=== PATIENT | female | born 1985 | race African-American/Black ===

== ENCOUNTER 2016-05-26 13:56 | Emergency (ER) | payer SELFPAY ==
[~2016-05-26] VITALS: Ht 180.3 cm; Wt 80.0 kg
[~2016-05-26 13:56] MED LIST: IBUP600T26 PO; LORTA5 PO; SULF1TAB47 PO
[2016-05-26 13:58] VITALS: BP 166/93; PULSE 69; RESP 12; TEMP 98.1; O2SAT 99
[2016-05-26] MEDS ORDERED: CLINDAMYCIN 150 MG CAP PO ONE (19:15)
[2016-05-26] MEDS ORDERED: NAPROXEN 500 MG TAB PO ONE (19:15)
--- NOTE | 2016-05-26 19:16 | PD ---
HPI Chief Complaint: Oral / Dental Pain or Problem Time Seen by Provider: 19:11 Travel History International Travel<30 days: No Contact w/Intl Traveler<30days: No Traveled to known affect area: No History of Present Illness HPI Patient comes in complaining of left upper dental pain ongoing for a while now. Patient states she tried getting to the health department 2 weeks ago, but was told she needs to be on antibiotics. Patient reports over the past week there was a small bump her left upper gum line that started draining. Patient denies any fevers, nausea or vomiting, or difficulty swallowing. Patient states she's also had associated headaches and intermittent dizziness over the past 3+ months similar to her tension headaches but has not seen a neurologist or PCP for this. Patient using [id number] medication for symptomatic relief last took yesterday. PFSH Past Medical History Blood Disorders: Yes (PE 07/26) Anxiety: Yes Depression: Yes Cancer: No Cardiovascular Problems: Yes (PE 07/26) High Cholesterol: No Congestive Heart Failure: No Diabetes: No Diminished Hearing: No Endocrine: Yes Gastrointestinal Disorders: No Genitourinary: No Hypertension: No Immune Disorder: No Implanted Vascular Access Dvce: No Medical other: Yes (pulmonary embolism) Musculoskeletal: No Neurologic: Yes Psychiatric: Yes Reproductive: No Respiratory: Yes (FOR LAST 2-3 WEEKS) Migraines: Yes Thyroid Disease: Yes ?: Unknown Menopausal: No : 0 Dilation and Curettage (D&C): Yes ("IRREGULAR VAGINAL BLEEDING (NOT ) 08/2005") Past Surgical History Genitourinary Surgery: Yes (D AND C 08/22) Gynecologic Surgery: Yes (D&C [place] 2005) Other Surgery: Yes Social History Alcohol Use: No Tobacco Use: Yes Substance Use: No Allergies-Medications (Allergen,Severity, Reaction): Coded Allergies: No Known Allergies (Verified , 05/26/16) Reported Meds & Prescriptions Reported Meds & Active Scripts Active Naprosyn (Naproxen) 500 Mg Tab 500 Mg PO Q12HR PRN Clindamycin (Clindamycin HCl) 150 Mg Cap 2 Tab PO Q6H 10 Days [place] 5-325 mg (Hydrocodone-Acetaminophen 5-325 mg) 5 mg/325 mg Tab 1 Tab PO Q6H PRN Ibuprofen 600 Mg Tab 600 Mg PO Q8H PRN Bactrim Ds (Trimethoprim/Sulfamethoxazole) Tab 1 Tab PO BID Review of Systems Except as stated in HPI: all other systems reviewed are Neg Physical Exam Narrative GENERAL: Well-developed, overly nourished, in no acute distress, and non-ill appearing. SKIN: Warm and dry. HEAD: Atraumatic. Normocephalic. EYES: Pupils equal and round. EOMI. No scleral icterus. No injection or drainage. ENT: No nasal bleeding or discharge. Mucous membranes pink and moist. Tympanic membranes pearly soni bilaterally. Posterior pharynx nonerythematous without exudate. Uvula is midline. Patient has poor temptation with draining abscess noted over tooth #11 is tender to palpation. Floor the mouth, submandibular, submental, and floor the mouth are soft palpation. No tenderness to facial sinuses. NECK: Trachea midline. No cervical lymphadenopathy. Supple. No nuclear rigidity. RESPIRATORY: No accessory muscle use. No respiratory distress. MUSCULOSKELETAL: No obvious deformities. No clubbing. No cyanosis. No edema. Full range of motion. NEUROLOGICAL: Awake and alert. No obvious cranial nerve deficits. Motor grossly within normal limits. Normal speech. PSYCHIATRIC: Appropriate mood and affect; insight and judgment normal. Data Data Last Documented VS Vital Signs Date Time Temp Pulse Resp B/P Pulse Ox O2 Delivery O2 Flow Rate FiO2 05/26/16 13:58 98.1 69 12 166/93 99 Room Air Orders Clindamycin (Cleocin) (05/26/16 19:15) Naproxen (Naprosyn) (05/26/16 19:15) Ed Urine Pregnancytest Poc (05/26/16 19:12) MDM Medical Decision Making Medical Screen Exam Complete: Yes Emergency Medical Condition: Yes Differential Diagnosis Dental infection, dental abscess, dental caries, dentalgia, other Narrative Course The patient presented with dental pain. There is no fever. There is no significant facial swelling or evidence of cellulitis. There is poor dentition and evidence of a draining abscess. There is no evidence of significant deep or invading abscess at this time. The patient will be placed on antibiotics and pain medication. The patient was instructed to follow up with a dentist. The patient was given the dental referral sheet. Warnings were discussed with the patient regarding worsening of infection. The patient is to return if pain worsens, develops progressive swelling or facial redness or fever. The patient agrees with plan. The patient looks great and is in no significant objective discomfort currently. Headache appears consistent with patients typical headache. Exam is unremarkable. The patient is in no distress and the patients neurological exam is normal, neck is supple and without meningismus. The headache is not consistent with meningitis or infection, nor is it consistent with intracranial bleed (SAH etc.), carotid dissection, nor mass by history and examination. Medication and instructions to rest in a cool dark quite place were discussed with the patient. Also, outpatient follow up was instructed. The patient was instructed to return as needed or if symptoms changed or worsened, fever developed or inability to tolerate fluids. The patient agreed with plan. Patient in no obvious distress upon re-evaluation. Discussed patient with Dr. Du, who is in agreement with plan of care and disposition. Patient was asked if they wanted to speak to my attending, which the patient did not wish to do at this time. Any questions/concerns in reference to patient diagnosis/condition discussed and clarified prior to patient's discharge. Reinforced sheer importance of close follow up with patient's primary physician or primary care clinic. Instructed patient to return to ED immediately, if symptoms return/worsen. Pt showed understanding of above instructions. Further instructions and recommendations were detailed in discharge paperwork. Pt ambulated without difficulty out of ED at discharge. Diagnosis Primary Impression: Dental abscess Additional Impressions: Dental caries Tension headache, chronic Qualified Code: G44.229 - Chronic tension-type headache, not intractable Referrals: Dentist Neurologist Primary Care Physician Patient Instructions: Dental Abscess (GEN), Dental Caries (DC), General Instructions, Tension Headache (ED) Additional Instructions: Follow-up with your primary care physician and dentist as soon as possible. Rinse mouth with warm salt water gargles. Take all medication as prescribed. Return to the emergency department if symptoms get worse. Med/Other Pt SpecificInfo: Prescription(s) given Scripts Naproxen (Naprosyn)500 Mg [id number] Mg PO Q12HR PRN (PAIN SCALE 1 TO 10) #14 TAB Ref 0 Prov:Autumn Du MD 05/26/16 Clindamycin 150 Mg Cap2 Tab PO Q6H 10 Days Ref 0 Prov:Autumn Du MD 05/26/16 Disposition: 01 DISCHARGE HOME Condition: Stable Juan Gamble May 26, 2016 19:16
[2016-05-26] MEDS ORDERED: NAPR500 PO (19:18)
[2016-05-26] MEDS ORDERED: CLIN1CAP5 PO (19:18)
== END 2016-05-26 19:40 | disposition home or self-care (01) ==
LOC: NEPC 13:56
DX: K04.7 Periapical abscess without sinus (principal); K02.9 Dental caries, unspecified; G44.229 Chronic tension-type headache, not intractable; E07.9 Disorder of thyroid, unspecified; Z72.0 Tobacco use
CPT/HCPCS: 84703; 99282